=== PATIENT | male | born 1970 | race Caucasian/White ===

== ENCOUNTER → 2018-05-27 00:17 | Outpatient (CLI) | payer MEDICAID, SELFPAY ==
--- NOTE | 2018-05-27 12:32 | DI.REPORT_ITS ---
SYMPTOM/DIAGNOSIS: ATYPICAL CHEST PAIN R07.89 CHEST X-RAY: PA, lateral. No priors. The heart is normal in size. The lungs are clear. The mediastinal structures and pleura appear intact. CONCLUSION: Normal chest.
--- NOTE | 2018-05-27 13:00 | ETT_ITS ---
*[facility]* *[facility]* [address] [place] [address] Stress Electrocardiography Jose A protocol Date of study: 05/27/2018 *PATIENT PRESENTATION* Height: 167.6cm (66in) Blood Pressure: Weight: 88.6kg (195lb) BSA: 2.06m^2 Ordering physician: Gianni Taylor Pa-C, V Impressions: Normal study after maximal exercise. Summary: 1. Stress ECG conclusions: The stress ECG is negative. 2. Stress: There is a normal resting blood pressure with a hypertensive response to stress. The patient experienced no chest pain during stress. Exercise capacity is above normal for age. Indication: R07.89. History: REASON FOR TESTING: INTERMITTANT, NON-SPECIFIC, CHEST PAIN OVER THE PAST YEAR. WILL OCCASIONALLY GET SX DOWN LEFT ARM. PT POOR HISTORIAN. PMH: LYMPHADENITIS, GERD, ABDOMINAL PAIN, BACK PAIN, NECK PAIN. FAMILY HX: NO FAMILY HX. SMOKING: CURRENT DAILY SMOKER X 25 YEARS 1/2 PPD. QUIT 1 WEEK AGO. EXCERCISE: I WORK A LOT Risk factors: Cholesterol: 231mg/dl. HDL: 31mg/dl. LDL: 172mg/dl. Triglycerides: 92mg/dl. ALLERGIES: DENIES MEDICATIONS: ZANTAC 150 MG DAILY, NAPROXEN 500 MG 2X/DAY NEEDED, PROAIR HFA 108MCG/ACT 2 PUFFS 3X/DAY NEEDED, Protocol: Jose A protocol. Baseline ECG: LAST EKG 12/02/16- SINUS BRADYCARDIA, HR 50. VERY POOR COPY OF TRACING. TODAY'S EKG- SINUS RHYTHM, HR 63, Stress protocol: + +---+ +---+ !Stage !HR !BP (mmHg) !Sat! + +---+ +---+ !Baseline supine !63 !130/84 (99) !---! + +---+ +---+ !Baseline standing !63 !124/86 (99) !98%! + +---+ +---+ !Stage I; 1.7mph, 10degrees; 3 min !109!138/88 (105)!96%! + +---+ +---+ !Stage II; 2.5mph, 12degrees; 3 min !118!150/88 (109)!---! + +---+ +---+ !Stage III; 3.4mph, 14degrees; 3 min!122!162/84 (110)!94%! + +---+ +---+ !Stage IV; 4.2mph, 16degrees; 3 min !162! !---! + +---+ +---+ !Recovery; 1 min !141!200/96 (131)!---! + +---+ +---+ !Recovery; 3 min !100!184/82 (116)!---! + +---+ +---+ !Recovery; 6 min !90 !148/90 (109)!---! + +---+ +---+ * Stress results: Maximal heart rate during stress was 174bpm (99% of maximal predicted heart rate). The maximal predicted heart rate was 175bpm. There is a normal resting blood pressure with a hypertensive response to stress. The rate-pressure product for the peak heart rate and blood pressure was 90802rq Hg/min. The patient experienced no chest pain during stress. Exercise capacity is above normal for age. Stress ECG: EXERCISE TESTING ENDED IN 12 MINS, 0 SECS, DUE TO FATIGUE AND THE PT FELL OFF THE END OF THE TREADMILL. (PT THOUGHT THE TREADMILL WAS STOPPING) MAX HR WAS 174, 99% OF TARGET. HYPERTENSIVE BLOOD PRESSURE RESPONSE. METS: 13.48 ECTOPY: NONE NOTED. ANGINA: NO REPORTED CHEST PAIN OR PRESSURE ISCHEMIA: NO ISCHEMIC CHANGES NOTED. FUNCTIONALCAPACITY: ABOVE AVERAGE CAPACITY. The stress ECG is negative. Study data: Henok Brambila MD supervised and was readily available during the procedure. This study was interpreted by [facility]. Study status: Routine. Consent: The risks, benefits, and alternatives to the procedure were explained to the patient and informed consent was obtained. Procedure: Initial setup. A baseline ECG was recorded. Surface ECG leads and manual cuff blood pressure measurements were monitored. Heart sounds: Normal. Lung sounds: Normal. Treadmill exercise testing was performed using the Jose A protocol. Study completion: The patient tolerated the procedure well and was discharged from the lab. Discharge: The patient left the laboratory in stable condition. Birthdate: Patient birthdate: 1970. Sex: Gender: male. Study date: Study date: 05/27/2018. Study time: 01:00 PM. Signature Documentation: The Stress ECG portion of this study was interpreted by Henok Brambila MD. Electronically signed by Henok Brambila 05/27/2018 16:03
== END ==
PROVIDERS: PCP Internal Medicine; Visit Provider Physician Assistant Medical
DX: R07.89 Other chest pain (principal); F17.210 Nicotine dependence, cigarettes, uncomplicated
CPT/HCPCS: 71046; 93017

== ENCOUNTER 2018-12-02 14:41 | Outpatient (REF) | payer MEDICAID, SELFPAY ==
[2018-12-02 20:05] LABS: COMMENT (LAB VIEW ONLY) 109.87 mg/dL; Microalb ug/mg Crea 7.4 ug/mg Cr
== END 2018-12-02 15:01 ==
LOC: NCHCN 14:41
PROVIDERS: PCP Internal Medicine; Visit Provider Internal Medicine
DX: R10.9 Unspecified abdominal pain (principal)
CPT/HCPCS: 82043; 82570

== ENCOUNTER 2020-05-31 09:42 | Outpatient (CLI) | payer OTHER, SELFPAY ==
--- NOTE | 2020-05-31 | DI.RAD_ITS ---
EXAM: XR MANDIBLE COMPLETE CLINICAL HISTORY: JAW PAIN, R68.84. TECHNIQUE: 2D digital imaging was performed. COMPARISON: No previous for comparison. FINDINGS: BONES: No evidence of fracture. The bones are normally mineralized and intact. JOINTS: No evidence of temporomandibular joint dislocation or subluxation. SOFT TISSUES: Unremarkable. IMPRESSION: Unremarkable radiographs of the mandible and TMJ. DATA REPOSITORY: RADIATION DOSE DELIVERED:
== END 2020-05-31 10:02 ==
PROVIDERS: PCP Internal Medicine; Visit Provider Physician Assistant
DX: R68.84 Jaw pain (principal)
CPT/HCPCS: 70110; 70328

== ENCOUNTER 2021-03-24 18:45 | Outpatient (REF) | payer BC, SELFPAY ==
[2021-03-24 19:20] LABS: Hemoglobin A1C 6.6 % (<5.7)
== END 2021-03-24 18:46 | disposition home or self-care (01) ==
LOC: NCHCN 18:45
PROVIDERS: PCP Internal Medicine; Visit Provider Nurse Practitioner Family
DX: R73.9 Hyperglycemia, unspecified (principal)
CPT/HCPCS: 83036

== ENCOUNTER 2021-08-27 09:35 | Outpatient (REF) | payer BC, SELFPAY ==
[2021-08-28 00:43] LABS: Hemoglobin A1C 7.3 % (<5.7)
[2021-08-28 07:43] LABS: COMMENT (LAB VIEW ONLY) 150.87 mg/dL; Microalb ug/mg Crea 13.7 ug/mg Cr
[2021-08-28 07:59] LABS: BUN 27 mg/dL (7-18); Calcium 9.1 mg/dL (8.5-10.1); Glucose 216 mg/dL (74-106)
[2021-08-28 08:00] LABS: Alkaline Phosphatase 83 U/L (46-116); Bilirubin, Total 0.3 mg/dL (0.2-1.0); CREATININE 1.2 mg/dL (0.70-1.30); Calculated LDL 236 mg/dL (<100); Chloride 106 mmol/L (98-107); Cholesterol 304 mg/dL (<200); HDL Cholesterol 34 mg/dL (40-60); Potassium 4.8 mmol/L (3.5-5.1); Sodium 142 mmol/L (136-145); Triglyceride 171 mg/dL (<150)
[2021-08-28 08:01] LABS: ALT 46 U/L (16-63); AST 17 U/L (15-37); Anion Gap 10.2 mmol/L (3-11); CO2 25.8 mmol/L (21.0-32.0)
== END 2021-08-27 09:36 | disposition home or self-care (01) ==
LOC: NCHCN 09:35
PROVIDERS: PCP Internal Medicine; Visit Provider Physician Assistant
DX: E11.9 Type 2 diabetes mellitus without complications (principal)
CPT/HCPCS: 80053; 80061; 82043; 82570; 83036

== ENCOUNTER 2021-10-27 20:20 | Outpatient (REF) | payer BC, SELFPAY ==
[2021-10-29 16:48] LABS: COVID-19 RT-PCR UVMMC Result Negative (Negative)
== END 2021-10-27 20:21 | disposition home or self-care (01) ==
LOC: NCHCN 20:20
PROVIDERS: PCP Internal Medicine; Visit Provider Nurse Practitioner Family
DX: Z20.822 Contact with and (suspected) exposure to COVID-19 (principal); R05.8 Other specified cough
CPT/HCPCS: U0003

== ENCOUNTER 2021-11-25 14:22 | Outpatient (CLI) | payer BC, SELFPAY ==
--- NOTE | 2021-11-25 13:45 | DI.RAD_ITS ---
Exam(s) XR HIP LT COMPLETE AP PELVIS EXAM: XR HIP LT COMPLETE AP PELVIS CLINICAL HISTORY: left hip pain. TECHNIQUE: 2D digital imaging was performed of the left hip. Three views were obtained. AP pelvis and lateral left hip views were obtained. COMPARISON: CR XR HIP MIN 2V LT from 09/24/2021 FINDINGS: BONES: No acute fracture is present. No bony destructive lesion is seen. JOINTS: No dislocation present. There is again seen an ovoid density in the medial joint space of the left hip. Lateral acetabular spurring and subchondral sclerosis is present. SOFT TISSUE: Normal. IMPRESSION: 1. Stable degenerative changes of the left hip. 2. Loose body in the medial left hip joint. DATA REPOSITORY: RADIATION DOSE DELIVERED:
== END 2021-11-25 14:23 | disposition home or self-care (01) ==
LOC: DIORS 14:22
PROVIDERS: PCP Internal Medicine; Referring Provider Internal Medicine; Visit Provider Student in an Organized Health Care Education/Training Program
DX: M25.552 Pain in left hip (principal); M16.12 Unilateral primary osteoarthritis, left hip; M24.052 Loose body in left hip
CPT/HCPCS: 73502

== ENCOUNTER 2022-01-01 02:46 | Outpatient (CLI) | payer BC, SELFPAY ==
--- NOTE | 2022-01-01 07:45 | DI.RAD_ITS ---
Exam(s) RF JOINT INJECTION FLUORO GUID EXAM: RF JOINT INJECTION FLUORO GUID CLINICAL HISTORY: L HIP PAIN,OA LT HIP, M16.12, FLUORO GUIDED INJECTION TECHNIQUE: Fluoroscopy provided. Radiologist not present. CONTRAST MATERIAL: None COMPARISON: No exams were available for comparison FINDINGS: Fluoroscopy was provided therapeutic left hip injection . Submitted image(s) reveal needle tip at the lateral aspect of the femoral head-neck junction and ther e is injected intra-articular contrast. Please refer to the procedure report for complete details. Cumulative Dose: Ka,r=not given mGy IMPRESSION: RADIATION DOSE DELIVERED:
--- NOTE | 2022-01-01 13:36 | W.PROCNOTE ---
Procedure Note Date of procedure: 01/01/22 Procedure: Left Hip Injection with Fluoroscopic Guidance Surgeon/Proceduralist/Physician: Diego Adelr Procedure Diagnosis: Left Hip Osteoarthritis Procedure Indications: Steve has had persistent pain of the LEFT hip and groin. Noninvasive measures have been tried. To serve as both diagnostic and therapeutic, an injection under fluoroscopy was recommended. I was asked by Dr. Maria to provide this injection. I had discussed the risks of the procedure and the patient elected to proceed. Procedure Description: Setve was greeted in the flouroscopy room. The correct side was identified and the consent was reviewed with the patient and signed. The patient was then placed in the supine position on the fluoroscopy table. The LEFT hip was then prepped with Chloraprep. The anterolateral injection starting point was identiifed by bony landmarks and fluoroscopy. The skin and soft tissue in the tract of the injection was anesthetized with 1% Lidocaine. A spinal needle was then inserted deep into the hip joint at the level of the lateral femoral neck under fluoroscopic guidance. A small amount of Omnipaque solution was injected to confirm intraarticular placement. Once confirmed, the hip was injected with 6cc of 0.5% Bupivicaine and 80mg of Depo-Medrol. A bandaid was placed on the injection site. The patient tolerated the procedure well and noted improvement in pre-injection pain.
[2022-01-01] MEDS: Bupivacaine 0.5% Pres-Free 10 ML VIAL 5 ML IJ (13:53)
[2022-01-01] MEDS: methylPREDNISolone ACETATE 80 MG/ML VIAL IM (13:54)
== END 2022-01-01 03:06 ==
PROVIDERS: PCP Internal Medicine; Visit Provider Student in an Organized Health Care Education/Training Program
DX: M16.12 Unilateral primary osteoarthritis, left hip (principal); M25.552 Pain in left hip
CPT/HCPCS: 20610; 77002; J1040

== ENCOUNTER 2022-10-08 15:08 | Outpatient (REF) | payer BC, SELFPAY ==
[2022-10-08 20:55] LABS: ALT 32 U/L (16-63); AST 24 U/L (15-37); Alkaline Phosphatase 68 U/L (46-116); Anion Gap 5.8 mmol/L (3-11); BUN 22 mg/dL (7-18); Bilirubin, Total 0.3 mg/dL (0.2-1.0); CO2 27.2 mmol/L (21.0-32.0); CREATININE 1.1 mg/dL (0.70-1.30); Calcium 9.3 mg/dL (8.5-10.1); Chloride 104 mmol/L (98-107); Estimated GFR 81.78 (mL/min/1.73m2); Glucose 130 mg/dL (74-106); Sodium 137 mmol/L (136-145); Total Protein 7.4 g/dL (6.4-8.2)
[2022-10-08 20:58] LABS: COMMENT (LAB VIEW ONLY) 23.04 mg/dL; Microalb ug/mg Crea 12.2 ug/mg Cr
== END 2022-10-08 15:09 | disposition home or self-care (01) ==
LOC: NCHCN 15:08
PROVIDERS: PCP Internal Medicine; Visit Provider Physician Assistant
DX: E11.9 Type 2 diabetes mellitus without complications (principal)
CPT/HCPCS: 80053; 82043; 82570

== ENCOUNTER 2022-12-15 19:47 | Outpatient (REF) | payer BC, SELFPAY ==
[2022-12-15 20:31] LABS: Troponin I < 50 ng/L (<or=60)
== END 2022-12-15 19:48 | disposition home or self-care (01) ==
LOC: NCHCN 19:47
PROVIDERS: PCP Internal Medicine; Visit Provider Nurse Practitioner Family
DX: R07.9 Chest pain, unspecified (principal)
CPT/HCPCS: 84484

== ENCOUNTER 2023-02-02 18:40 | Outpatient (REF) | payer BC, SELFPAY ==
[2023-02-03 19:14] LABS: PSA, Screening 1.2 ng/mL (<=3.5)
== END 2023-02-02 18:41 | disposition home or self-care (01) ==
LOC: NCHCN 18:40
PROVIDERS: PCP Internal Medicine; Visit Provider Physician Assistant
DX: R35.0 Frequency of micturition (principal); Z12.5 Encounter for screening for malignant neoplasm of prostate; Z80.42 Family history of malignant neoplasm of prostate
CPT/HCPCS: 84153

== ENCOUNTER 2023-03-15 13:40 | Emergency (ER) | payer BC, SELFPAY ==
[2023-03-15 13:56] VITALS: BP 131/87; PULSE 62; RESP 18; TEMP 36.6; O2SAT 95
--- NOTE | 2023-03-15 14:09 | ED.GENADUL_ITS ---
Discharge Plan Disposition Patient Disposition: Home Discharge Details Clinical Impression: Ciliary muscle spasm of right eye, Corneal abrasion, left Primary Care Provider: Russell Galvan ED Provider: Jonathon Mcghee Home Meds and New Rx's Prescriptions: New erythromycin 5 mg/gram (0.5 %) ointment 1 applic ophthalmic (eye) DAILY Qty: 3.5 0RF cyclopentolate 1 % drops 1 drp ophthalmic (eye) TID 5 Days Qty: 15 0RF Rx Instructions: compress lacrimal sac for 1-2 minutes after instillation cyclopentolate 2 % drops 1 drp ophthalmic (eye) Q10M PRNQty: 5 0RF Continued albuterol sulfate [ProAir HFA] 90 mcg/actuation HFA aerosol inhaler 2 puff inhalation TID PRN cyclobenzaprine 10 mg tablet 10 mg PO TID PRN rosuvastatin 20 mg tablet 20 mg PO DAILY aspirin [Adult Aspirin Regimen] 81 mg tablet,delayed release (DR/EC) 81 mg PO DAILY metformin 500 mg Tablet 500 mg PO DAILY Discharge Instructions Instructions: Corneal Abrasion (ED) Additional Instructions: You were seen in the emergency department for your eye pain. Your eye pressure was within normal limits. A referral is in place to the [facility] eye care in [place] tomorrow. Please use this ointment to prevent infection in your eye and these eyedrops for eye pain. Discharge Data Discharge Date/Time-TO BE ENTERED AT DEPARTURE: 03/15/23 15:11 Medical Decision Making This is an uncomfortable appearing but normothermic and not tachycardic 52-year-old male with right eye pain for the past 2 days likely secondary to corneal abrasion and ciliary spasm. He has no significant hyphema. His int raocular pressures are reassuring against any retrobulbar hematoma and he has no significant proptosis. His pain is likely secondary to ciliary spasm causing photophobia for which I treated him with outpatient cyclopentolate. He does have a corneal abrasion medially for which he will receive erythromycin given no contact use. No Lynda's sign to suggest globe rupture. His visual acuity was limited and this is likely secondary to ciliary spasm. I have asked health apartment community assistant manager Divina to place a referral for [facility] eye care to see the patient tomorrow. He is a diabetic but not a smoker. HPI General Date/Time Provider Initiated Documentation: 03/15/23 14:08 . HPI Narrative: This is a 52-year-old non-smoking diabetic who arrives via private vehicle in the setting of right eye injury he sustained approximately 48 hours ago. He reports that he was grilling 2 nights ago and attempted to open an old bottle of beer. He hit the beer and cap to the beer bottle hit his right eyelid. He has had pain and trouble seeing subsequently. He does not wear contacts nor does he wear corrective lenses. He sustained no other injuries. Related Data Home Medications Medication Instructions Recorded Confirmed albuterol sulfate 90 mcg/actuation 2 puff inhalation TID PRN 10/21/21 03/15/23 aerosol inhaler (ProAir HFA) aspirin 81 mg tablet,delayed 81 mg PO DAILY 10/21/21 12/17/21 release (Adult Aspirin Regimen) cyclobenzaprine 10 mg tablet 10 mg PO TID PRN 10/21/21 03/15/23 rosuvastatin 20 mg tablet 20 mg PO DAILY 10/21/21 12/17/21 cyclopentolate 1 % eye drops 1 drp ophthalmic (eye) TID 5 days 03/15/23 #15 mL cyclopentolate 2 % eye drops 1 drp ophthalmic (eye) Q10M PRN #5 03/15/23 mL erythromycin 5 mg/gram (0.5 %) eye 1 applic ophthalmic (eye) DAILY 03/15/23 ointment #3.5 grams metformin 500 mg tablet 500 mg PO DAILY 03/15/23 03/15/23 Previous Rx's Medication Instructions Recorded cyclopentolate 1 % eye drops 1 drp ophthalmic (eye) TID 5 days 03/15/23 #15 mL cyclopentolate 2 % eye drops 1 drp ophthalmic (eye) Q10M PRN #5 03/15/23 mL erythromycin 5 mg/gram (0.5 %) eye 1 applic ophthalmic (eye) DAILY 03/15/23 ointment #3.5 grams Allergies Allergy/AdvReac Type Severity Reaction Status Date / Time NSAIDS (Non-Steroidal Allergy Mild Verified 03/15/23 14:12 Anti-Inflamma General Stated Complaint: EyeProblem KALLIE: 4 PFSH All Active Problems (Updated 03/15/23 @ 14:43 by Jonathon Mcghee MD) Ciliary muscle spasm of right eye (Acute) Corneal abrasion, left (Acute) Lumbosacral spondylosis without myelopathy (Acute) Osteoarthritis of left hip (Acute) Tobacco abuse (Acute) GERD (gastroesophageal reflux disease) (Chronic) Diabetes mellitus (Chronic) Arthropathy of lumbar facet joint (Acute) Medical History Adenomatous colon polyp Gastric ulcer Gastroduodenitis Hyperlipidemia Left hip pain Loose body in left hip Lumbago with sciatica Lumbar disc herniation with radiculopathy Social History Smoking/Tobacco Use Status: Current every day Smoking risk assessment performed?: Yes Alcohol Intake: never Drug use: Daily Substance use type: marijuana Current gender identity: male Exam Narrative Exam Narrative: General: Uncomfortable-appearing in no acute distress speaking in complete sentences. Head: Normocephalic, atraumatic. Eye: right eye with significant conjunctival injection. No trauma to lid sunglasses. No proptosis. Visual acuity as reported by dairy lab technician Berhane was 20/320 in the right eye and 20/25 bilaterally. On fluorescein exam patient did have mild small left-sided corneal abrasion. Intraocular pressure on the right was 16 mg mercury. On fluorescein exam patient had no significant hyphema. Anterior chamber deep and quiet. No Lynda's sign. No afferent pupillary defect. Ear, nose, mouth, throat: Grossly normal inspection. Normal voice, handling secretions normally. Neck: Trachea midline. Cardiovascular: Well-perfused distal extremities. Respiratory: Nonlabored respiration. Gastrointestinal: Nondistended abdomen. Musculoskeletal: No edema. Moving all 4 extremities spontaneously. Skin: Normal for age and race, grossly normal temperature and turgor. No acute rash. Neurologic: Alert and appropriate, no apparent acute deficits. Psychiatric: Mood and manner are appropriate. Grooming and personal hygiene are appropriate. Course Vital Signs Vital signs: Vital Signs Temperature 36.6 C 03/15/23 13:56 Pulse 62 03/15/23 13:56 Respiratory Rate 18 03/15/23 13:56 Blood Pressure 131/87 03/15/23 13:56 Pulse Oximetry 95 03/15/23 13:56 Temperature 36.6 C 03/15/23 13:56 Temperature Source Oral 03/15/23 13:56 Pulse 62 03/15/23 13:56 Respiratory Rate 18 03/15/23 13:56 Blood Pressure 131/87 03/15/23 13:56 Blood Pressure Position Sitting 03/15/23 13:56 Pulse Oximetry 95 03/15/23 13:56 Oxygen Delivery Method Room Air 03/15/23 13:56 Oxygen Flow Rate 0 03/15/23 13:56 Pain Level 3 03/15/23 13:56
[2023-03-15] MEDS: Erythromycin Ophth Oint 3.5 GM TUBE OD (15:04)
--- NOTE | 2023-03-15 15:49 | NUR.NOTE ---
Nursing Note: Prescriptions called in to [facility] as electronic orders failed.
--- NOTE | 2023-03-15 17:15 | NUR.NOTE ---
Nursing Note: Referral faxed to [facility] for corneal abrasion, to be seen March 16.
== END 2023-03-15 15:11 | disposition home or self-care (01) ==
PROVIDERS: Emergency Provider Emergency Medicine; PCP Internal Medicine
DX: H51.8 Other specified disorders of binocular movement (principal); T15.02XA Foreign body in cornea, left eye, initial encounter; W22.8XXA Striking against or struck by other objects, initial encounter
CPT/HCPCS: 99283

== ENCOUNTER 2023-03-25 09:12 | Emergency (ER) | payer BC, SELFPAY ==
[2023-03-25] VITALS (34 sets, daily range): BP systolic 103–152; BP diastolic 64–87; PULSE 50–72; RESP 7–23; TEMP 36.7; O2SAT 89–99
--- NOTE | 2023-03-25 09:00 | RT.EKG_ITS ---
APPROVED REPORT Exam: Resting ECG Reason for Exam: Chest pain Patient Location: E HR:66 bpm ECG Measurements Heart Rate 66 AXIS ND 131 P 33 QRSd 90 QRS 15 QT 376 T 46 QTc 395 Conclusion Sinus rhythm...normal P axis, V-rate 60- 99 sinus rhythm, normla axis, normal intervals, non ischemic
--- NOTE | 2023-03-25 09:49 | ED.GENADUL_ITS ---
Discharge Plan Disposition Patient Disposition: Home Discharge Details Clinical Impression: Chest pain Primary Care Provider: Russell Galvan ED Provider: Edwin Purdy Home Meds and New Rx's Prescriptions: Continued albuterol sulfate [ProAir HFA] 90 mcg/actuation HFA aerosol inhaler 2 puff inhalation TID PRN cyclobenzaprine 10 mg tablet 10 mg PO PRN PRN rosuvastatin 20 mg tablet 20 mg PO DAILY Patient Comments: I haven't taken it in over a month but im supposed to aspirin [Adult Aspirin Regimen] 81 mg tablet,delayed release (DR/EC) 81 mg PO DAILY Patient Comments: havent taken in months but Im supposed to metformin 500 mg Tablet 500 mg PO DAILY erythromycin 5 mg/gram (0.5 %) ointment 1 applic ophthalmic (eye) DAILY Qty: 3.5 0RF Patient Comments: script complete cyclopentolate 2 % drops 1 drp ophthalmic (eye) Q10M PRNQty: 5 0RF Discharge Instructions Instructions: Chest Pain (ED) Additional Instructions: At this time all of your work-up shows no obvious findings for the cause of your chest pain. I do recommend that you have further testing performed by your primary care office or return for new or significant worsening of symptoms. Please continue to take acetaminophen along with your normally prescribed medications. Referrals: Russell Galvan [Primary Care Provider] - 5 days Medical Decision Making Patient presenting to the emergency department for chief complaint of chest pain. Patient reports while just preparing for work he started having significant left-sided chest pain that was sharp and stabbing and some radiation of the pain and discomfort to the left arm. He states this lasted less than a minute but was very concerning. He does state that for a while now he has had intermittent left-sided chest pain. Patient denies any injury or trauma, denies any exertional component to pain, denies all other symptoms physical exam is unremarkable for any worrisome findings no bruits, normal cardiac respiratory exam. Patient does have past medical history of diabetes, GERD, and tobacco use. We will plan on performing EKG and labs. Pending results we will give patient aspirin 324 but patient does state that pain has fully resolved by the time he got to the emergency department. Please see physician interpretation for full interpretation of EKG but upon my review patient is in sinus rhythm, rate of 66, no obvious ischemic findings are noted so we will continue to monitor. Reviewed patient's labs and CBC is overall unremarkable, patient is negative D- dimer, CMP shows glucose of 239 but otherwise all other CMP findings within normal range, troponin is less than 50. We will perform plain film chest x-ray. Did reassess patient patient states no new or worsening or return of symptoms. Chest x-ray is negative. Pending second Trope patient did start complaining of slight pleuritic chest pain. Given patient having an NSAID allergy we will give acetaminophen. Patient's second troponin is reviewed and is nondetectable and negative. Reassessed patient patient does state improvement of symptoms again. Question of possible pleurisy versus chest pain. There is still question of potential cardiac nature due to patient's risk factors of diabetes and smoking. Due to this I do feel that patient should have further work-up which may include stress test and/or echo. Discussed with patient risk versus benefit of discharge knowing that he is at moderate risk of potential Mace and patient states that he prefers to be discharged home and follow-up with primary care provider. Given so far negative work-up I do feel this is appropriate at this time but patient was instructed that he should have a low threshold to return for new or worsening symptoms. After discussion of diagnosis and plan of care patient has no further needs, questions, or concerns and states clear understanding to return to the emergency department for any worsening symptoms. This documentation was generated using [employer] dictation system, please disregard any oddities of phrase or misspellings. Imaging Data Radiologic Study: Imaging: X-Ray Radiologist's impression: Exam(s) XR CHEST 2V PA LATERAL EXAM: XR CHEST 2V PA LATERAL CLINICAL HISTORY: chest pain TECHNIQUE: 2D digital imaging was performed of the chest. Two images were obtained. PA and lateral views were obtained. COMPARISON: CR CHEST 2 VIEWS PA,LAT from 05/27/2018 FINDINGS: MEDIASTINUM: Normal. HEART: Normal. PULMONARY VASCULATURE: Normal. LUNGS: Clear. PLEURAL SPACE: No pleural effusion or pneumothorax. BONE:Within normal limits for the patient's age. OTHER FINDINGS:Normal. IMPRESSION: No acute pulmonary findings. Lab Data Lab results reviewed: Yes I reviewed the patient's lab results. HPI General Mode of arrival: ambulatory . Date/Time Provider Initiated Documentation: 03/25/23 09:14 . Limitations to Documentation: no limitations . Information obtained by: patient and RN notes reviewed . History of Present Illness 52 year old M presents to the emergency department with the chief complaint of Chest pain, described as moderate and severe, with intensity rated at 9. Quality is described as sharp, and is localized to the chest. Patient extremity. Patient started experiencing this hour(s) (1) and it has been intermittent and now resolved. No relieving factors improve symptom(s), No exacerbating factors reported . Patient notes no other symptoms.. Patient did receive the following treatments prior to arrival, none Related Data Home Medications Medication Instructions Recorded Confirmed albuterol sulfate 90 mcg/actuation 2 puff inhalation TID PRN 10/21/21 03/25/23 aerosol inhaler (ProAir HFA) aspirin 81 mg tablet,delayed 81 mg PO DAILY 10/21/21 12/17/21 release (Adult Aspirin Regimen) cyclobenzaprine 10 mg tablet 10 mg PO PRN PRN 10/21/21 03/25/23 rosuvastatin 20 mg tablet 20 mg PO DAILY 10/21/21 03/25/23 cyclopentolate 2 % eye drops 1 drp ophthalmic (eye) Q10M PRN #5 03/15/23 03/25/23 mL erythromycin 5 mg/gram (0.5 %) eye 1 applic ophthalmic (eye) DAILY 03/15/23 ointment #3.5 grams metformin 500 mg tablet 500 mg PO DAILY 03/15/23 03/25/23 Previous Rx's Medication Instructions Recorded cyclopentolate 2 % eye drops 1 drp ophthalmic (eye) Q10M PRN #5 03/15/23 mL erythromycin 5 mg/gram (0.5 %) eye 1 applic ophthalmic (eye) DAILY 03/15/23 ointment #3.5 grams Allergies Allergy/AdvReac Type Severity Reaction Status Date / Time NSAIDS (Non-Steroidal Allergy Mild Verified 03/25/23 09:32 Anti-Inflamma General Stated Complaint: Chest Pain KALLIE: 3 Review of Systems Constitutional Constitutional: Denies chills, Denies fever(s) and Denies malaise Cardiovascular Cardiovascular: Reports as per HPI, Reports chest pain, Denies chest pain with activity, Denies syncope, Denies irregular heart rhythm, Denies palpitations and Denies dyspnea Respiratory Respiratory: Denies cough, Denies hemoptysis and Denies dyspnea Gastrointestinal Gastrointestinal: Denies abdominal pain, Denies nausea and Denies vomiting Neurologic Neurologic: Denies syncope Psychiatric Psychiatric: Denies anxiety Endocrine Endocrine: Denies palpitations PFSH All Active Problems (Updated 03/25/23 @ 14:13 by Edwin Purdy NP) Ciliary muscle spasm of right eye (Acute) Corneal abrasion, left (Acute) Chest pain (Acute) Lumbosacral spondylosis without myelopathy (Acute) Osteoarthritis of left hip (Acute) Tobacco abuse (Acute) GERD (gastroesophageal reflux disease) (Chronic) Diabetes mellitus (Chronic) Arthropathy of lumbar facet joint (Acute) Medical History Adenomatous colon polyp Gastric ulcer Gastroduodenitis Hyperlipidemia Left hip pain Loose body in left hip Lumbago with sciatica Lumbar disc herniation with radiculopathy Social History Smoking/Tobacco Use Status: Current every day Tobacco Type: cigarettes Smoking risk assessment performed?: Yes Alcohol Intake: never Drug use: Daily Substance use type: marijuana Current gender identity: male Exam Const General: cooperative, healthy appearing, comfortable, no acute distress, not diaphoretic and not ill appearing Nutritional Appearance: average body habitus Orientation: alert, awake and oriented x3 Limitations: mental status not altered Neck Neck: normal visual inspection, full ROM, trachea midline, supple and no anterior neck swelling Carotids: normal carotid upstroke and no bruits Chest Chest: normal inspection of the chest Resp Effort & Inspection: normal respiratory effort and able to speak in complete sentences Auscultation: clear to auscultation bilaterally Cardio Jugular venous pressure: no JVD Palpation: normal PMI Rate: regular rate Rhythm: regular rhythm Heart Sounds: S1 normal, S2 normal, no click, no gallops, no murmurs and no rubs Bruits: no abdominal aortic bruits and no carotid bruits Pulses: radial pulses present bilaterally 2+ GI Inspection: normal to inspection Palpation: soft, no aortic enlargement, no pulsatile masses and nontender Auscultation: normal bowel sounds Skin General skin exam: no rashes or lesions noted Neuro General: patient alert, patient awake, patient oriented x3, tone normal and moves all extremities Course Vital Signs Vital signs: Vital Signs Temperature 36.7 C 03/25/23 09:16 Pulse 65 03/25/23 09:16 Respiratory Rate 20 03/25/23 09:16 Blood Pressure 152/76 H 03/25/23 09:16 Pulse Oximetry 93 03/25/23 09:16 Temperature 36.7 C 03/25/23 09:16 Temperature Source Oral 03/25/23 09:16 Pulse 65 03/25/23 09:16 Respiratory Rate 20 03/25/23 09:28 Respiratory Effort Normal 03/25/23 09:28 Respiratory Depth Normal 03/25/23 09:28 Respiratory Pattern Normal 03/25/23 09:28 Blood Pressure 152/76 H 03/25/23 09:16 Blood Pressure Position Supine 03/25/23 09:16 Pulse Oximetry 93 03/25/23 09:16 Oxygen Delivery Method Room Air 03/25/23 09:16 Oxygen Flow Rate 0 03/25/23 09:16
[2023-03-25 09:57] LABS: Abs Immature Grans 0.02 10^3/uL (0.0-0.06); Absolute Basophil Count 0.05 10^3/uL (0.0-0.2); Absolute Eosinophil Count 0.22 10^3/uL (0.0-0.7); Absolute Lymphocyte Count 2.84 10^3/uL (1.2-3.4); Absolute Monocyte Count 0.72 10^3/uL (0.1-0.8); Absolute Neutrophil Count 3.02 10^3/uL (1.2-6.7); Basophils % 0.7; Eosinophils % 3.2; HGB 16.7 g/dL (13.5-17.5); Immature Grans % 0.3; Lymphocytes % 41.3; MCH 30.8 pg (27.0-33.0); MCHC 33.4 % (32.0-36.0); MCV 92 fL (80-95); MPV 12.3 fL (8.0-11.0); Monocytes % 10.5; Platelet Count 177 10^3/uL (130-400); RBC 5.42 10^6/uL (4.36-5.78); RDW 12.4 % (11.8-14.1); RDW-SD 42.4 fL; WBC 6.87 10^3/uL (4.4-10.8)
[2023-03-25] MEDS: Aspirin 81 MG CHEW 324 MG CH (09:58)
[2023-03-25 10:34] LABS: ALT 40 U/L (16-63); AST 21 U/L (15-37); Alkaline Phosphatase 70 U/L (46-116); BUN 18 mg/dL (7-18); Bilirubin, Total 0.5 mg/dL (0.2-1.0); CREATININE 1.3 mg/dL (0.70-1.30); Calcium 9.1 mg/dL (8.5-10.1); Chloride 103 mmol/L (98-107); Estimated GFR 66.93 (mL/min/1.73m2); Glucose 239 mg/dL (74-106); Sodium 138 mmol/L (136-145); Total Protein 7.5 g/dL (6.4-8.2); Troponin I < 50 ng/L (<or=60)
[2023-03-25 10:40] LABS: D-Dimer 292 ng/mlFEU (<500)
--- NOTE | 2023-03-25 10:45 | DI.RAD_ITS ---
Exam(s) XR CHEST 2V PA LATERAL EXAM: XR CHEST 2V PA LATERAL CLINICAL HISTORY: chest pain TECHNIQUE: 2D digital imaging was performed of the chest. Two images were obtained. PA and lateral views were obtained. COMPARISON: CR CHEST 2 VIEWS PA,LAT from 05/27/2018 FINDINGS: MEDIASTINUM: Normal. HEART: Normal. PULMONARY VASCULATURE: Normal. LUNGS: Clear. PLEURAL SPACE: No pleural effusion or pneumothorax. BONE:Within normal limits for the patient's age. OTHER FINDINGS:Normal. IMPRESSION: No acute pulmonary findings. DATA REPOSITORY: RADIATION DOSE DELIVERED:
[2023-03-25 13:19] LABS: Troponin I < 50 ng/L (<or=60)
[2023-03-25] MEDS: Acetaminophen 500 MG TAB 1000 MG PO (13:22)
--- NOTE | 2023-03-25 14:18 | NUR.NOTE ---
Nursing Note: PT needs follow up with PCP in 3-5 days for chest pain & further testing. Heena, ED
== END 2023-03-25 18:37 | disposition home or self-care (01) ==
PROVIDERS: Emergency Provider Nurse Practitioner Family; PCP Internal Medicine
DX: R07.9 Chest pain, unspecified (principal); R06.02 Shortness of breath
CPT/HCPCS: 36415; 80053; 93005; 99283; 71046; 83735; 84484; 85025; 85379; 93010; 99284

== ENCOUNTER → 2023-06-08 03:23 | Outpatient (CLI) | payer BC, SELFPAY ==
--- NOTE | 2023-06-08 | DI.US_ITS ---
APPROVED REPORT EXAM: Stress Echocardiogram Stress Nurse: Shelli Simpson RN Ordering Provider: JOHANA HALE, Contact Number: [phone] HR: 62 bpm BP: 134/88 mmHg Rhythm: NSR Indications: Chest Pain Medical History Medical History: GERD, DM, Tobacco Abuse, HLD Medications: Rosuvastatin, Metformin, Aspirin, Albuterol Sulfate Allergies: NSAIDS Cardiac Risk Factors: HLD, Asthma, DM, Smoking Previous Cardiac Procedures: None Pretest Chest Pain Characteristics: None Exercise History: Indeterminate Physical Disabilities: None Stress Test Details Test: Exercise stress testing was performed using a Jose A protocol. Rest Stress HR Resting HR Supine: 62 bpm Max Heart Rate (APMHR): 170 bpm Resting HR Standin bpm Target HR (85% APMHR): 145 bpm Max HR Achieved: 160 bpm % of APMHR: 94 Recovery HR: 87 bpm HR response to stress: Normal HR response to stress BP Resting BP Supine: 134/88 mmHg Resting BP Standin/80 mmHg Max BP: 202/82 mmHg Recovery BP: 130/78 mmHg BP response to stress: Normal blood pressure response to stress. ECG Resting ECG: Sinus Rhythm Ectopy: Rare PVC Stress ECG: Sinus Tachycardia ST Change: No significant ST segment changes noted Arrhythmia: Rare PVC Recovery ECG: Sinus Rhythm Recovery ST Change: No significant ST segment changes noted Comment: rare PVC Clinical Reason for Termination: Target HR Achieved, Diffiicult reading ECG- artifact present, Fatigue Stress Symptoms: General Fatigue Exercise duration: 9 min34 sec Highest Stage Reached: Stage 3: 3.4 mph at 14% grade. Exercise capacity: 11.10 METs Angina Score: None Rosa Treadmill Score: 9.5 Rate Pressure Product: 31508 Stress ECG Conclusion 1. Resting electrocardiogram was within normal limits 2. Patient exercised on a Jose A protocol and completed a workload of 11.1 METS limited by fatigue 3. Normal heart rate and blood pressure response to exercise. The patient achieved 92% of predicted heart rate for age 4. There was no electrocardiographic evidence of myocardial ischemia 5. There were occasional premature ventricular contractions 6. There was no echocardiographic evidence of myocardial ischemia Rosa Treadmill Score is 9.5 which is Low risk. Stress Test Summary STAGE Time (mins) Speed (mph) Grade (%) HR BP SYMPTOMS METS Supine 62 134/88 Standing 65 132/80 1 3 1.7 10 113 172/84 4.6 2 6 2.5 12 128 180/92 7 3 9 3.4 14 146 190/98 10.2 1 min recovery 124 202/82 3 min recovery 93 170/70 6 min recovery 87 130/78 Echo Findings The Pre-Stress Echocardiogram showed normal left ventricular contractility with an estimated Ejection Fraction of about 60%. The Peak-Stress Echocardiogram showed normal left ventricular contractility with an estimated Ejectio n Fraction of about 75%. Conclusion Resting electrocardiogram was within normal limits Patient exercised on a Jose A protocol and completed a workload of 11.1 METS limited by fatigue Normal heart rate and blood pressure response to exercise. The patient achieved 92% of predicted hea rt rate for age There was no electrocardiographic evidence of myocardial ischemia There were occasional premature ventricular contractions There was no echocardiographic evidence of myocardial ischemia Plain Rosa Treadmill Score is 9.5 which is Low risk.
== END ==
PROVIDERS: PCP Internal Medicine; Visit Provider Physician Assistant
DX: R07.9 Chest pain, unspecified (principal)
CPT/HCPCS: 93350; 93017

== ENCOUNTER 2023-10-05 19:44 | Outpatient (REF) | payer BC, SELFPAY ==
[2023-10-05 18:56] LABS: Abs Immature Grans 0.04 10^3/uL (0.0-0.06); Absolute Basophil Count 0.07 10^3/uL (0.0-0.2); Absolute Eosinophil Count 0.16 10^3/uL (0.0-0.7); Absolute Lymphocyte Count 3.57 10^3/uL (1.2-3.4); Absolute Neutrophil Count 5.01 10^3/uL (1.2-6.7); Basophils % 0.7; Eosinophils % 1.6; HCT 47.7 % (40.0-50.0); HGB 16.3 g/dL (13.5-17.5); Immature Grans % 0.4; Lymphocytes % 36.6; MCH 30.9 pg (27.0-33.0); MCHC 34.2 % (32.0-36.0); MCV 90 fL (80-95); MPV 12.9 fL (8.0-11.0); Monocytes % 9.2; Neutrophils % 51.5; Platelet Count 218 10^3/uL (130-400); RBC 5.28 10^6/uL (4.36-5.78); RDW 12.2 % (11.8-14.1); RDW-SD 40.7 fL; WBC 9.75 10^3/uL (4.4-10.8)
[2023-10-05 19:28] LABS: ALT 34 U/L (16-63); AST 22 U/L (15-37); Alkaline Phosphatase 72 U/L (46-116); BUN 17 mg/dL (7-18); Bilirubin, Total 0.3 mg/dL (0.2-1.0); Chloride 104 mmol/L (98-107); Estimated GFR 91.12 (mL/min/1.73m2); Glucose 97 mg/dL (74-106); Potassium 4.1 mmol/L (3.5-5.1); Sodium 139 mmol/L (136-145); Total Protein 7.7 g/dL (6.4-8.2)
[2023-10-05 19:39] LABS: Hemoglobin A1C 7.1 % (<5.7)
[2023-10-05 20:11] LABS: COMMENT (LAB VIEW ONLY) 32.75 mg/dL; Microalb ug/mg Crea 9.8 ug/mg Cr
== END 2023-10-05 19:45 | disposition home or self-care (01) ==
LOC: NCHCN 19:44
PROVIDERS: PCP Internal Medicine; Visit Provider Physician Assistant
DX: E11.65 Type 2 diabetes mellitus with hyperglycemia (principal)
CPT/HCPCS: 80053; 82043; 82570; 83036; 85025

== ENCOUNTER 2024-04-06 20:13 | Outpatient (REF) | payer OTHER, SELFPAY ==
[2024-04-06 19:08] LABS: ALT 37 U/L (16-63); AST 22 U/L (15-37); Albumin 4.1 g/dL (3.4-5.0); Alkaline Phosphatase 73 U/L (46-116); Anion Gap 9.1 mmol/L (3-11); BUN 20 mg/dL (7-18); Bilirubin, Total 0.32 mg/dL (0.2-1.0); CO2 26.9 mmol/L (21.0-32.0); CREATININE 1.1 mg/dL (0.70-1.30); Calcium 9.7 mg/dL (8.5-10.1); Chloride 105 mmol/L (98-107); Estimated GFR 81.28 (mL/min/1.73m2); Glucose 121 mg/dL (74-106); Potassium 3.8 mmol/L (3.5-5.1); Sodium 141 mmol/L (136-145); Total Protein 7.4 g/dL (6.4-8.2)
== END 2024-04-06 20:14 | disposition home or self-care (01) ==
LOC: NCHCN 20:13
PROVIDERS: PCP Internal Medicine; Visit Provider Physician Assistant
DX: E11.65 Type 2 diabetes mellitus with hyperglycemia (principal)
CPT/HCPCS: 80053

== ENCOUNTER 2024-07-24 01:21 | Outpatient (CLI) | payer OTHER, SELFPAY ==
--- NOTE | 2024-07-24 | DI.RAD_ITS ---
Exam(s) XR KNEE RT 3V AP,LAT,AYDIN EXAM: XR KNEE RT 3V AP,LAT,AYDIN CLINICAL HISTORY: PAIN RT KNEE, M25.561. TECHNIQUE: 2D digital imaging was performed. Three views. COMPARISON: No exams were available for comparison FINDINGS: BONES: No acute fracture is present. There is a cystic lesion in the posterior aspect of the medial tibial plateau in the epiphysis and metaphysis. There is no visible cortical breakthrough or aggress sunil features. JOINTS: The knee is normally aligned. No joint effusion is seen. The joint spaces are maintained. M inimal spurring at the articular aspect of the patella. SOFT TISSUE: Normal. IMPRESSION: Cystic appearing lesion in the posterior medial tibial plateau could represent a simple bone cyst or giant cell tumor, or intra osseous ganglion. MRI could be considered for further evaluation. DATA REPOSITORY: RADIATION DOSE DELIVERED:
== END 2024-07-24 01:41 ==
PROVIDERS: PCP Internal Medicine; Visit Provider Physician Assistant
DX: M25.561 Pain in right knee (principal)
CPT/HCPCS: 73562

== ENCOUNTER 2024-08-25 00:23 | Outpatient (CLI) | payer OTHER, SELFPAY ==
--- NOTE | 2024-08-25 | DI.RAD_ITS ---
Exam(s) XR EYE FOREIGN BODY EXAM: XR EYE FOREIGN BODY INDICATION: ABNL FINDINGS KNEE R93.6, PRE MRI CLEARANCE. COMPARISON: No exams were available for comparison TECHNIQUE: 2D digital imaging was performed. FINDINGS: No radiopaque foreign bodies are seen in the orbits. IMPRESSION: No radiopaque foreign bodies are seen in the orbits. DATA REPOSITORY: RADIATION DOSE DELIVERED:
--- NOTE | 2024-08-25 | DI.MRI_ITS ---
Exam(s) MR LOWER JOINT RT WO EXAM: MR LOWER JOINT RT WO CLINICAL HISTORY: ABNL FINDINGS XR KNEE R93.6 ? CYSTIC LESION. TECHNIQUE: Multiplanar multisequence MRI was performed. COMPARISON: CR XR KNEE RT 3V AP,LAT,AYDIN from 07/24/2024 FINDINGS: BONES: There is no fracture or contusion pattern. There is a multiloculated lesion in the posterior a spect of the medial tibial plateau. It measures 3.1 transverse by 1.6 AP by 2.8 craniocaudad cm. Th ere does appear to be extension beyond the cortex into the soft tissues posterior medially. It is ho mogeneously hyperintense on the T2 weighted images. It is homogeneously hypointense, isointense to m uscle on the T1 weighted images. JOINTS: There is marked thinning of the articular cartilage overlying the patellofemoral joint with s ubchondral cysts present. There also osteophytes seen both medially and laterally on the patella. T he articular cartilage in the femoral tibial joint appears well maintained. There is a small amount of fluid in the joint space. TENDONS: Extensor mechanism: Unremarkable. Medial retinaculum: Unremarkable. Lateral retinaculum: Unremarkable. Popliteus: Unremarkable. MUSCLES: Unremarkable. MENISCI: The medial meniscus is unremarkable. The lateral meniscus is unremarkable. SOFT TISSUES: Unremarkable. LIGAMENTS: Anterior Cruciate: Unremarkable. Posterior Cruciate: Unremarkable. Medial Collateral:Unremarkable. Lateral Collateral: Unremarkable. OTHER: IMPRESSION: 1. The lesion is not included on the axial T1 weighted images. In addition, further characterization with postcontrast images is recommended. The patient should return for additional imaging. 2. 3.1 x 1.6 x 2.8 cm multiloculated cystic lesion in the posterior proximal tibial plateau. There d oes appear to be extension beyond the cortex into the adjacent soft tissues. Further imaging is requ ested as discussed above. 3. No evidence of a meniscal or ligament tear. 4. Chondromalacia at the patellofemoral joint. Unexpected findings DATA REPOSITORY:
== END 2024-08-25 00:43 ==
LOC: DI 00:23
PROVIDERS: PCP Internal Medicine; Visit Provider Physician Assistant
DX: R93.6 Abnormal findings on diagnostic imaging of limbs (principal); M22.41 Chondromalacia patellae, right knee; T15.02XD Foreign body in cornea, left eye, subsequent encounter
CPT/HCPCS: 73721; 70030

== ENCOUNTER 2024-09-19 01:44 | Outpatient (CLI) | payer OTHER, SELFPAY ==
--- NOTE | 2024-09-19 | DI.MRI_ITS ---
Exam(s) MR LOWER JOINT RT W EXAM: MR LOWER JOINT RT W CLINICAL HISTORY: Abnl findings on Rt knee MRI of 08/25/24, R93.7, f/u imaging requesting. TECHNIQUE: Multiplanar multisequence MRI of the right knee was performed. CONTRAST MATERIAL: IV Contrast: 18 mL of Dotarem contrast administered. COMPARISON: CR XR KNEE RT 3V AP,LAT,AYDIN from 07/24/2024 MR MR LOWER JOINT RT WO from 08/25/2024 FINDINGS: BONES/JOINTS: There is a well-circumscribed homogeneously hypointense cystic lesion in the posterior aspect of the medial tibia. It measures 3.2 cm transverse by 1.7 cm AP x 3.2 cm craniocaudad. There well-circumscribed margins. It is mildly lobulated. No fluid fluid levels are present. Following contrast administration there is thin peripheral enhancement noted. There is no extension into the s urrounding soft tissues. No soft tissue component is present. No marrow edema is seen on the examin ation from 08/25/2024. MUSCULOTENDINOUS STRUCTURES: The adjacent muscles show normal signal and no enhancement. No muscular fatty atrophy. SOFT TISSUES: Unremarkable. OTHER FINDINGS: None. IMPRESSION: Mildly lobulated well-circumscribed subchondral cystic lesion in the proximal tibia. No associated m uscular or soft tissue component is seen. Differential considerations include subchondral cyst, intr aosseous ganglion or giant cell should be considered. DATA REPOSITORY:
[2024-09-19] MEDS: Normal Saline Flush 10 ML SYR IVP (12:39)
[2024-09-19] MEDS: Gadoterate meglumine 20 ML SYRINGE 18 ML IVP (12:40)
== END 2024-09-19 02:04 ==
LOC: DI 01:45
PROVIDERS: PCP Internal Medicine; Visit Provider Physician Assistant
DX: M85.662 Other cyst of bone, left lower leg (principal)
CPT/HCPCS: 73722

== ENCOUNTER 2024-12-07 01:00 | Outpatient (CLI) | payer OTHER, SELFPAY ==
--- NOTE | 2024-12-07 10:23 | DI.RAD_ITS ---
Exam(s) XR LUMBAR SPINE COMPLETE EXAM: XR LUMBAR SPINE COMPLETE CLINICAL HISTORY: LUMBAGO W/ SCIATICA LEFT SIDE. TECHNIQUE: 2D digital imaging was performed of the lumbar spine. Five images were obtained. AP, la teral, right oblique, left oblique and L5-S1 spot views were obtained. COMPARISON: No exams were available for comparison FINDINGS: BONES: No fracture or destructive lesion. There endplate osteophytes seen at L3-L4. No facet hypertro phy identified. DISKS: Intervertebral disc spaces are maintained. ALIGNMENT: Lumbar spinal alignment is within normal limits. No spondylolysis or spondylolisthesis. SOFT TISSUE: Normal. IMPRESSION: Mild degenerative changes in the lumbar spine. DATA REPOSITORY: RADIATION DOSE DELIVERED:
== END 2024-12-07 01:20 ==
PROVIDERS: PCP Internal Medicine; Visit Provider Physician Assistant
DX: M51.360 Other intervertebral disc degeneration, lumbar region with discogenic back pain only (principal)
CPT/HCPCS: 72110

== ENCOUNTER 2025-05-22 17:57 | Outpatient (REF) | payer OTHER, SELFPAY ==
[2025-05-22 20:17] LABS: ALT 36 U/L (16-63); AST 27 U/L (15-37); Albumin 4.3 g/dL (3.4-5.0); Alkaline Phosphatase 79 U/L (46-116); Anion Gap 7.9 mmol/L (3-11); BUN 17 mg/dL (7-18); Bilirubin, Total 0.3 mg/dL (0.2-1.0); CO2 28.1 mmol/L (21.0-32.0); Calcium 9.7 mg/dL (8.5-10.1); Chloride 104 mmol/L (98-107); Estimated GFR 80.77 (mL/min/1.73m2); Glucose 94 mg/dL (74-106); Potassium 4.1 mmol/L (3.5-5.1); Sodium 140 mmol/L (136-145); Total Protein 7.5 g/dL (6.4-8.2)
[2025-05-22 21:16] LABS: COMMENT (LAB VIEW ONLY) 13.89 mg/dL
[2025-05-23 21:42] LABS: PSA, Diagnostic 1.4 ng/mL (<=3.5)
[2025-05-23 22:18] LABS: Hepatitis C Ab w Rflx HCV PCR Negative (Negative)
[2025-05-23 22:39] LABS: HIV-1/2 Ag & Ab Screen Negative (Negative)
== END 2025-05-22 17:58 | disposition home or self-care (01) ==
LOC: NCHCN 17:57
PROVIDERS: PCP Internal Medicine; Visit Provider Physician Assistant
DX: E11.65 Type 2 diabetes mellitus with hyperglycemia (principal); Z11.4 Encounter for screening for human immunodeficiency virus [HIV]; Z12.5 Encounter for screening for malignant neoplasm of prostate; E78.5 Hyperlipidemia, unspecified
CPT/HCPCS: 80053; 86803; 87389; 82043; 82570; 84153

== ENCOUNTER 2025-09-18 19:39 | Outpatient (REF) | payer OTHER, SELFPAY ==
[2025-09-18 19:37] LABS: Microalb ug/mg Crea 5.4 ug/mg Cr
== END 2025-09-18 19:40 | disposition home or self-care (01) ==
LOC: NCHCN 19:39
PROVIDERS: PCP Internal Medicine; Visit Provider Physician Assistant
DX: E11.65 Type 2 diabetes mellitus with hyperglycemia (principal)
CPT/HCPCS: 82043; 82570